=== PATIENT | male | born 1970 | race Caucasian/White ===

== ENCOUNTER 2020-07-29 17:44 | Emergency (ER) | payer OTHER, SELFPAY ==
[2020-07-29 17:59] VITALS: BP 155/97; PULSE 73; RESP 16; TEMP 36.6; O2SAT 100
--- NOTE | 2020-07-29 18:24 | ED.DIZZY ---
HPI - Dizziness General Chief Complaint: Dizziness Stated Complaint: Vertigo Source: patient and RN notes reviewed Limitations: no limitations History of Present Illness HPI Narrative: The patient, active bicyclist and non-smoker/occasional drinker, presents with vertigo/dizziness. Patient states he has a shorter, couple day history of true positional, vertigo that is mild now, associated with nausea, worse with motion, better at rest and was worse earlier in the day and had lasted for hours. No fever, vomiting/diarrhea/dehydration, CP, URI?sinusitis, family history of M?ni?re's, tinnitus, headache, speech?visual changes, lateralizing weakness, prior injury, medication, Related Data Home Medications Medication Instructions Recorded Confirmed No Home Medications 07/29/20 07/29/20 Allergies Allergy/AdvReac Type Severity Reaction Status Date / Time Cat Dander Allergy Intermediate Uncoded 12/12/15 21:55 Review of Systems Review of Systems: Narrative: General/Constitutional: No weight loss,fever Eyes: N0: Redness,discharge Ears/Nose/Throat: No: Epistaxis,ear discharge Respiratory: Denies: Hemoptysis Gastrointestinal: No Vomiting, Bleeding-rectal Skin: No Lumps, eruption Neurologic: No Focal Weakness,Sz Hematologic: Denies: Petechiae/Purpura Psychiatric: No: Suicida ideationl All Other Systems: Reviewed and Negative [facility] Family History Family History (Updated 10/18/13 @ 07:13 by DOCTOR UNKNOWN) Father Hypertension Family history of elevated blood lipids Mother Family history of elevated blood lipids Sibling Family history of malignant neoplasm of brain Social History Social History Smoking status: Never smoker Alcohol intake: current Comments At time of signature, agree with nursing past medical, surgical, social and family history. There is no relevant family history pertinent to the presenting complaint Exam Narrative: Exam Narrative: General Appearance: Well appearing, No distress EYE: PERRLA, Conjunctiva clear; normal [id number], HTS Neurological: A&O x3, CN II-X intact, no nystagmus;, reflexes symmetric 1-2+ Ears: TMs benign and external ear normal Nose: Normal nose Mouth/Throat: Normal appearing, Normal lips Neck: Supple Respiratory: Airway patent, No respiratory distress Cardiovascular: RRR Musculoskeletal: Full ROM and strength, without drift Skin: Warm, Dry Psychiatric: Normal mood, Normal affect Course Vital Signs Vital signs: Vital Signs Temperature 98 F 07/29/20 17:59 Pulse Rate 73 07/29/20 17:59 Respiratory Rate 16 07/29/20 17:59 Blood Pressure 155/97 H 07/29/20 17:59 Pulse Oximetry 100 07/29/20 17:59 Temperature 98 F 07/29/20 17:59 Pulse Rate 73 07/29/20 17:59 Respiratory Rate 16 07/29/20 17:59 Blood Pressure 155/97 H 07/29/20 17:59 Pulse Oximetry 100 07/29/20 17:59 Discharge Plan Discharge Clinical Impression: Positional vertigo Patient Disposition: Home, Self-Care Condition: Stable Instructions: Vertigo (ED) Prescriptions: New meclizine 25 mg tablet 25 mg PO TID PRN (Reason: dizziness) Qty: 20 RF: 1 diazepam 2 mg tablet 1 - 2 mg PO HS PRN (Reason: vertigo) Qty: 7 RF: 0 No Action No Home Medications RF: 0 Follow-up/Referrals: Alpesh Dalton MD [Primary Care Provider] -
== END 2020-07-29 18:32 | disposition home or self-care (01) ==
PROVIDERS: Emergency Provider Emergency Medicine; PCP Family Medicine
DX: H81.10 Benign paroxysmal vertigo, unspecified ear (principal)
CPT/HCPCS: 99203; G0463